=== PATIENT | male | born 1990 | race African-American/Black ===

== ENCOUNTER 2023-08-29 11:00 | Outpatient (CLI) | payer SELFPAY ==
[2023-08-29 22:38] LABS: NEISSERIA GONORRHOEAE DNA NEGATIVE (NEGATIVE); TRICHOMONAS VAGINALIS DNA NEGATIVE (NEGATIVE)
[2023-08-29 22:43] LABS: CHLAMYDIA TRACHOMATIS DNA POSITIVE (NEGATIVE)
[2023-08-31 03:09] LABS: HCV AB Non Reactive (Non Reactive)
[2023-08-31 04:09] LABS: HIV SCREEN 4TH GENERATION Non Reactive (Non Reactive); HSV 1 IGG TYPE SPEC <0.91 index (0.00-0.90); HSV 2 IGG TYPE SPEC <0.91 index (0.00-0.90)
[2023-08-31 06:10] LABS: RPR Non Reactive (Non Reactive)
== END 2023-08-29 11:15 | disposition home or self-care (01) ==
LOC: LAB.N 11:00
PROVIDERS: ATTEND Nurse Practitioner
DX: R07.0 Pain in throat (principal); Z11.3 Encounter for screening for infections with a predominantly sexual mode of transmission
CPT/HCPCS: 36415; 86592; 86695; 86696; 86803; 87070; 87255; 87389; 87491; 87591; 87661